=== PATIENT | male | born 1975 ===

== ENCOUNTER 2020-02-12 17:47 | Outpatient (CLI) | payer OTHER | END 2020-02-12 17:48 | disposition home or self-care (01) | LOC: COV 17:47 | PROVIDERS: ATTEND Family Medicine | DX: R53.83 Other fatigue (principal); J02.9 Acute pharyngitis, unspecified; Z20.828 Contact with and (suspected) exposure to other viral communicable diseases ==

== ENCOUNTER 2022-06-11 12:19 | Emergency (ER) | payer OTHER ==
[2022-06-11 12:32] VITALS: BP 123/75
[2022-06-11] MEDS ORDERED: PROPARACAINE 0.5% OPHTH DROPS 15 ML LEFTEYE STA (12:38)
[2022-06-11] MEDS ORDERED: ERYTHROMYCIN OPHTH OINT 1 GM TUBE LEFTEYE STA (12:51)
--- NOTE | 2022-06-11 13:00 | ED Physician Documentation ---
History of Present Illness - Stated complaint Stated Complaint: LT EYE PX - Chief complaint Chief Complaint: Heent - Additonal information Additional information: 46-year-old male presents to the emergency department for evaluation Of left eye watering and mild discomfort. He states that for years his left eye has often watered more than his right eye. For the last few days he has been noticing some discomfort in the upper eye under the lid that he feels like could be dust or debris though there is no reason for him to have such. He has no loss of vision. No recent URI. He does not wear contact lenses. [facility] and has been unable to establish with an surveyor helper rod. History is obtained from patient. Good historian Review of Systems Eyes: reports: Discharge, Irritation. denies: Loss of vision, Decreased vision, Photophobia Ears: reports: Reviewed and negative Nose: reports: Reviewed and negative Throat: reports: Reviewed and negative Cardiac: reports: Reviewed and negative PD PAST MEDICAL HISTORY - Allergies Allergies/Adverse Reactions: Allergies Allergy/AdvReac Type Severity Reaction Status Date / Time No Known Drug Allergies Allergy Verified 06/11/22 12:32 PD ED PE EXPANDED - Eyes Eyes: Normal eyelids, Nl conjunctiva/sclera, Other (Negative fluorescein exam of the left eye. No obvious debris or foreign body with everted lids. Left eye gently irrigated with 400 mils of saline. Normal-appearing conjunctive a and sclera without exudate or injection). No: Eyelid swelling, Eyelid erythema, No eyelid FB (everted), Injected conj/sclera, Exudate Results - Vitals Vitals: Vital Signs - 24 hr 06/11/22 12:30 Temperature 36.7 C Heart Rate 67 Respiratory 14 Rate Blood Pressure 123/75 O2 Saturation 96 Oxygen O2 Source Room air PD Medical Decision Making - ED course Complexity details: considered differential, d/w patient ED course: 46-year-old male presents emergency department for a acutely watering left eye and the sensation of a foreign body under the lid. Everted lid exam reveals no obvious foreign body. The eye was gently irrigated with nearly 500 mils of saline. A fluorescein stain was also completed and was negative. Patient has preserved and normal extraocular movements. There is no eyelid swelling. He did not have an injected sclera or erythematous conjunctiva. No exudate was seen. Clinically this does not appear to be a hyphema, subconjunctival hemorrhage nor is it consistent with a keratitis or iritis. At this time the cause of the acute pain is not clear. Certainly there is nothing to suggest an ulceration or abrasion of the conjunctive a. No foreign body was seen. He has normal vision. I am advising the patient to use erythromycin ointment on the eye which will act as a salve And prevent further irritation. I am advising the patient to have very close follow-up with ophthalmology within the next week. We did discuss the usual emergent return precautions for eye pain and discomfort which would include fevers, eyelid swelling or any loss of vision or suddenly severe or different pain Departure - Departure Disposition: 01 Home, Self Care Clinical Impression: Acute pain in left eye Condition: Stable Record reviewed to determine appropriate education?: Yes Comments: The exam of your eye today does not reveal any obvious dust or debris as a cause of your eye pain. The fluorescein stain also shows no abrasions or ulcerations. You have had a watery eye for quite some time. I think it is important that you follow closely with an surveyor helper rod over the next week. In the short-term I am prescribing you erythromycin ointment that you should put on your eye twice daily for the next 5 to 7 days. It is possible that there is some subtle debris or discomfort that is causing the newer symptoms. At any point you find that you are having worsening symptoms, have any loss of vision, swelling of your eyelids or worsening pain then please return immediately to the ER.
== END 2022-06-11 13:07 | disposition home or self-care (01) ==
LOC: ED 12:19
DX: H57.12 Ocular pain, left eye (principal)
CPT/HCPCS: 99282; 99283; J3490

== ENCOUNTER 2022-07-08 10:46 | Emergency (ER) | payer OTHER ==
[2022-07-08 10:54] VITALS: BP 128/69
--- NOTE | 2022-07-08 11:55 | ED Physician Documentation ---
PD HPI LOWER EXT INJURY - Stated complaint Stated Complaint: LFT HIP PAIN - Chief complaint Chief Complaint: Trauma Ext - History obtained from History obtained from: Patient - History of Present Illness PD HPI LOW EXT INJURY LOCATION: Left, Hip Type of injury: Fall (had a fall to left about 8 months ago when mowing and had pain there for weeks. It jiang been recurring area of hurting with minor mechanisms, like extra walking or activity. He notes pain with palpation and unable to sleep left side as pressure there hurts. No back pain.) Where injury occurred: Home Timing - onset: How many weeks ago (initial onset with injury about 8 months ago but the current pain started in past couple weeks without apparent new injury. Pain lateral hip and extends down lateral thigh to above knee. No pain lower. Occasional numbness lateral foot/toes.) Timing - details: Intermittant Worsened by: Moving, Palpating Associated symptoms: Numbness (occasionaly down lateral foot and toes. no weakness.). No: Weakness Review of Systems Constitutional: denies: Fever, Chills Skin: denies: Rash, Lesions Musculoskeletal: denies: Back pain Neurologic: denies: Focal weakness PD PAST MEDICAL HISTORY - Past Medical History Cardiovascular: None Respiratory: None Endocrine/Autoimmune: None Musculoskeletal: None - Present Medications Home Medications: Ambulatory Orders Medication Instructions Recorded Confirmed HYDROcod/ACETAM 5/325 [[place] 5/325] 1 ea PO Q6H PRN #15 tablet 07/08/22 Meloxicam 7.5 mg PO BID #40 ml 07/08/22 - Allergies Allergies/Adverse Reactions: Allergies Allergy/AdvReac Type Severity Reaction Status Date / Time No Known Drug Allergies Allergy Verified 07/08/22 10:54 PD ED PE NORMAL - Vitals Vital signs reviewed: Yes - General General: Alert and oriented X 3, Well developed/nourished - Back Back: No spinal TTP - Derm Derm: Normal color, Warm and dry, No rash - Extremities Extremities: Other (foccal tenderness left lateral hip over the trocanter area and soem inferior. no noted swelling. Pain with abduction and external rotation against resistance. Seems most likely trochanteric bursitis/tendonitis. ) - Neuro Neuro: Alert and oriented X 3, No motor deficit, No sensory deficit Results - Vitals Vitals: Vital Signs - 24 hr 07/08/22 10:50 Temperature 36.0 C L Heart Rate 65 Respiratory 16 Rate Blood Pressure 128/69 O2 Saturation 99 Oxygen O2 Source Room air - Rads (name of study) left hip Radiology: Prelim report reviewed, EMP read indepedently (no arthritic changes nor calcification of tendon. ), See rad report Procedures - General procedure General procedure: Kenalog with bupivocaine injection at trochanter area (not intra-articular). PD Medical Decision Making - ED course Complexity details: reviewed results, considered differential (seems like chronic recurrent trochanteric bursitis/tendonitis. can start with steroid inje ction and regular NSAIDs, as well as stretching targeted at IT band and sartorius. ), d/w patient Departure - Departure Disposition: Home, Self Care Clinical Impression: Trochanteric tendinitis of left hip Condition: Stable Record reviewed to determine appropriate education?: Yes Instructions: Trochanteric Bursitis, Iliotibial Band Stretch Follow-Up: [facility] [Provider Group] [facility] [Provider Group] Prescriptions: Meloxicam 7.5 mg PO BID #40 ml HYDROcod/ACETAM 5/325 [[place] 5/325] 1 ea PO Q6H PRN #15 tablet PRN Reason: Pain Comments: I did a an injection with a long-acting steroid medication in the area of the tendon and bursa on the side of the hip. Hopefully this will help reasonably well. In addition I would suggest oral anti-inflammatories twice daily for the next 2 to 3 weeks regularly. I prescribed meloxicam as a long-acting only has to be twice daily. Add Tylenol every 4-6 hours if needed for pain or hydrocodone/acetaminophen if needed for worse pain at times, particularly like at night for sleep etc. I think this is some tendinitis of the muscles that attach at the greater trochanter. Primarily this is the iliotibial band and some other muscles that primarily are involved with external rotation and lifting her leg away from midline. Stretches of this would therefore be the opposite to try to stretch your hip with your left leg bent and extended over the right and also trying to stretch it across midline to the right. Physical therapy to the area can also be helpful as well. Contact your primary care to see if they can institute that. I sent your prescriptions to the [facility]. You can also follow-up with the orthopedic office here for further treatment and evaluation. I am prescribing a short course of narcotic pain medication for you. These are potentially dangerous and addictive medications that should be used carefully. These medications may constipate you. Take an mibo-nep-dlbbkux stool softener such as docusate twice daily with plenty of water while taking these medications. If you go 24 hours without a bowel movement, take uyhe-bus-pfldmyv MiraLAX, per package instructions. Do not drink or drive while taking these medications. If you received narcotic or sedating medications while in the emergency department do not drive for 24 hours. Store this medication in a safe, secure place and out of reach of children. It is a violation of federal law to give or sell this medication to another person or to use in a manner other than prescribed. The ED will not refill narcotic prescriptions, including prescriptions lost or stolen. You can dispose of unwanted medications at the [facility]'s office or at several pharmacies such as [facility]. Discharge Date/Time: 07/08/22 14:03
[2022-07-08] MEDS ORDERED: TRIAMCINOLONE 40 MG/ML VIAL MC STA (12:34)
[2022-07-08] MEDS ORDERED: BUPIVACAINE 0.25% PF 10 ML VIAL SUBQ STA (12:43)
[2022-07-08] MEDS: BUPIVACAINE 0.25% PF 30 ML VIAL SUBQ STA ×2 (12:45→13:00)
--- NOTE | 2022-07-08 13:22 | XRAY Report ---
PROCEDURE: Hip w/Pelvis 2-3V LT INDICATIONS: lateral hip pain for awhile TECHNIQUE: AP pelvis with lateral view(s) of the left hip(s). COMPARISON: None. FINDINGS: Bones: No fractures or dislocations. Pelvic ring appears intact. No suspicious bony lesions. Soft tissues: The visualized bowel gas pattern is normal. No suspicious soft tissue calcifications. IMPRESSION: No acute abnormality of the pelvis or left hip. Reviewed by: Benjamin Mendosa on 07/08/2022 1:20 PM PST Approved by: Benjamin Mendosa on 07/08/2022 1:20 PM [facility] Station ID: [id number]
== END 2022-07-08 14:03 | disposition home or self-care (01) ==
LOC: ED 10:46
DX: M70.62 Trochanteric bursitis, left hip (principal); Y93.9 Activity, unspecified
CPT/HCPCS: 20552; 99283

== ENCOUNTER 2023-04-04 08:41 | Outpatient (CLI) | payer OTHER ==
--- NOTE | 2023-04-04 10:49 | MRI Report ---
PROCEDURE: HIP WO - LT INDICATIONS: LEFT HIP PAIN TECHNIQUE: Noncontrast coronal T1 spin echo and STIR through the bony pelvis. Coronal and axial T2 fast spin ec ho with fat saturation, sagittal T1 spin echo, and oblique axial T2 fast spin echo with fat saturatio n through the hip. COMPARISON: None. FINDINGS: Image quality: Excellent. There are findings of a mild to moderate bilateral trochanteric bursitis. Do not see any significant degenerative change. No joint effusion is identified. Marrow signal visual ized bones appears normal. Musculature appears symmetric. No loculated fluid collection or soft tissu e masses identified. No para labral cyst formation is seen. Visualized pelvic organs appear within normal limits. No adenopathy is identified. IMPRESSION: 1. Ebgy-tn-zipbtisb bilateral trochanteric bursitis. Reviewed by: Ronald Taylor MD on 04/04/2023 10:48 AM PST Approved by: Ronald Taylor MD on 04/04/2023 10:48 AM [facility] Station ID: [id number]
== END 2023-04-04 08:42 | disposition home or self-care (01) ==
LOC: DI 08:41
PROVIDERS: ATTEND Internal Medicine
DX: M70.62 Trochanteric bursitis, left hip (principal); M70.61 Trochanteric bursitis, right hip

== ENCOUNTER 2023-08-24 08:10 | Emergency (ER) | payer OTHER ==
--- NOTE | 2023-08-24 08:55 | ED Physician Documentation ---
PD HPI LOWER EXT INJURY - Stated complaint Stated Complaint: LT ANKLE INJ - Chief complaint Chief Complaint: Ext Problem - History obtained from History obtained from: Patient - History of Present Illness PD HPI LOW EXT INJURY LOCATION: Left, Ankle Type of injury: Twist (he was running with his dog and turned sideways to watch it, and stepped on uneven ground, causing forceful inversion. With pain and pop feeling. Has limiting pain with walking.) Where injury occurred: [place] Timing - onset: Yesterday Timing - details: Abrupt onset, Still present Improved by: Rest Associated symptoms: Swelling. No: Weakness, Numbness Similar symptoms before: Has not had sx before Review of Systems Skin: denies: Abrasion (s), Laceration (s) Neurologic: denies: Focal weakness, Numbness PD PAST MEDICAL HISTORY - Past Medical History Past Medical History: Yes Cardiovascular: None Respiratory: None Endocrine/Autoimmune: None Musculoskeletal: None - Past Surgical History Past Surgical History: Yes Ortho: Other - Allergies Allergies/Adverse Reactions: Allergies Allergy/AdvReac Type Severity Reaction Status Date / Time No Known Drug Allergies Allergy Verified 08/24/23 08:26 - Social History Does the pt smoke?: No Smoking Status: Never smoker Does the pt drink ETOH?: No Does the pt have substance abuse?: No - Immunizations Immunizations are current?: Yes - POLST Patient has POLST: No PD ED PE NORMAL - Vitals Vital signs reviewed: Yes - General General: Alert and oriented X 3, Well developed/nourished - Extremities Extremities: Other (right ankle with effusion/swelling both medial and lateral. Pain with stress testing, but I am able to at least tell no gross laxity. Achilles firm and intact. ) - Neuro Neuro: Alert and oriented X 3, No motor deficit, No sensory deficit, Normal speech Results - Vitals Vitals: Vital Signs - 24 hr 08/24/23 08/24/23 08:26 10:53 Temperature 36.7 C 36.9 C Heart Rate 77 67 Respiratory 16 20 Rate Blood Pressure 122/62 127/68 O2 Saturation 98 100 Oxygen O2 Source Room air - Rads (name of study) right ankle Relevant Findings:: Prelim report reviewed, EMP independent interpretation of test (no fracture. Calcific irregular medial talar dome, but not appearing impacted nor fracture. ) PD Medical Decision Making - ED course Complexity details: reviewed results (no noted fractures. On AP, there is mild irregular medial talar dome. Not seen on oblique. ), considered differential (ankle strapin versus fracture. Can get xray to evaluate. ), d/w patient Departure - Departure Disposition: 01 Home, Self Care Clinical Impression: High ankle sprain Condition: Stable Record reviewed to determine appropriate education?: Yes Instructions: ED Sprain Ankle Follow-Up: [facility] [Provider Group] Comments: Your x-ray does not show any fractures. I looked again at the x-ray and the different views and looks like just a small arthritic margin on the top of the talus. No obvious fracture. The radiology report says no fracture. Obviously her ankle still injured and more than just the typical outside ligaments. Presumption would be some tearing of some of the ligaments within the ankle joint and could possibly be some impaction of the bone. The treatment for these would be initially ankle brace and immobility to reduce the pain and injury. I would wear the ankle boot orthosis fairly regularly for the next week to 10 days. You can have it off for changing close of course and to rest at times. It does not need to be firmly consistent with it since they are not fractures per se. Use the crutches for partial to no weightbearing as needed for discomfort. Probably minimal weightbearing on it initially for the beginning healing of the ligaments. Follow-up with the orthopedic clinic in about 1 to 1-1/2 weeks for reevaluation. At that point they can better assess the streakiness of the ligaments and determine the duration of treatment from there. Elevate ice and rest your ankle often the next few days. I would suggest some anti-inflammatory such as ibuprofen or naproxen 2-3 vxzi-rpr-wnzakda tablets 3 times daily with food for the next week. Add Tylenol every 4-6 hours if needed for pains. Forms: PCP List Discharge Date/Time: 08/24/23 10:53
--- NOTE | 2023-08-24 09:07 | XRAY Report ---
PROCEDURE: Ankle 3+V LT INDICATIONS: Trauma TECHNIQUE: 3 views of the ankle were acquired. COMPARISON: None. FINDINGS: Bones: No fractures or dislocations. Ankle mortise is normally aligned. No suspicious bony lesions . Small retrocalcaneal enthesophyte. Soft tissues: No tibiotalar joint effusion. Achilles tendon appears normal. Mild focal soft tissue swelling at the lateral aspect of the ankle. IMPRESSION: No acute bony abnormality. If pain persists with conservative management, consider further evaluation with cross-sectional imagi ng such as CT or MRI. Reviewed by: Kerri Aguillon MD, PhD on 08/24/2023 9:06 AM PDT Approved by: Kerri Aguillon MD, PhD on 08/24/2023 9:06 AM PDT Station ID: [id number]
[2023-08-24] MEDS: IBUPROFEN 600 MG TABLET PO STA (09:19)
[2023-08-24 10:59] VITALS: BP 127/68; O2SAT 100
== END 2023-08-24 10:53 | disposition home or self-care (01) ==
LOC: ED 08:10
DX: S93.492A Sprain of other ligament of left ankle, initial encounter (principal); X50.9XXA Other and unspecified overexertion or strenuous movements or postures, initial encounter
CPT/HCPCS: 73610; 99283; 99284; A9270